=== PATIENT | male | born 1975 | race Caucasian/White ===

== ENCOUNTER 2022-07-08 16:54 | Observation (INO) ==
[2022-07-08 17:17] LABS: Basophils % 0.6 % (0.0-0.8); Eosinophils # 0.1 10*3/uL (0.0-0.87); Eosinophils % 1.2 % (0.00-10.9); Hematocrit 52.4 VOL% (42.0-52.0); Hemoglobin 17.7 GM/DL (14.0-18.0); Immature Granulocytes % 0.4 %; Immature Granulocytes Absolute 0.03 #; Lymphocytes # 1.5 10*3/uL (1.4-4.0); Lymphocytes % 21.4 % (21.2-54.2); Mean Corpuscular HGB Conc 33.8 GM/DL (32-36); Mean Corpuscular Volume 93.4 FL (87-102); Mean Platelet Volume 9.5 FL (9.6-12.0); Monocytes # 0.7 10*3/uL (0.11-0.8); Monocytes % 10.2 % (1.7-12.7); Neutrophils % 66.2 % (38.7-73.9); Platelet Count 197 T/CUMM (130-400); Red Blood Count 5.61 MC/CUMM (3.8-5.5); White Blood Count 6.9 T/CUMM (4-12)
[2022-07-08 17:38] LABS: Albumin 4.1 G/DL (3.4-5.0); Bilirubin,Total 1.4 MG/DL (0.20-1.00); Calcium 9.7 MG/DL (8.5-10.1); Osmolality,Calculated 285.1 MOS/KG (273-304); Potassium 4.1 MMOL/L (3.5-5.1); Total Protein 7.4 G/DL (6.4-8.2)
[2022-07-08] MEDS ORDERED: ENOXAPARIN 100 MG/ML SYRINGE SUBCUT STA (18:21)
[2022-07-08] MEDS ORDERED: ENOXAPARIN 120 MG/0.8 ML SYRINGE SUBCUT STA (18:22)
[2022-07-08] MEDS ORDERED: ASPIRIN 325 MG TABLET PO STA (18:24)
[2022-07-08] MEDS ORDERED: MORPHINE 2 MG/1 ML SYRINGE IV STA (18:24)
[2022-07-08] MEDS ORDERED: ONDANSETRON 4 MG/2 ML VIAL IV STA (18:24)
[2022-07-08] MEDS ORDERED: NITROGLYCERIN 2% OINT 1 INCH/GM PACK TOP STA (18:24)
[2022-07-08] MEDS ORDERED: POTASSIUM CHLORIDE RIDER 10 MEQ/100 ML PREMIX IV PRN (18:25)
[2022-07-08] MEDS ORDERED: MAGNESIUM SULF RIDER 2 GM/50 ML PREMIX IV PRN ×2 (18:25→18:27)
[2022-07-08] MEDS ORDERED: DIAZEPAM 5 MG TABLET PO ONE (18:25)
[2022-07-08] MEDS ORDERED: diphenhydrAMINE CAP 25 MG CAPSULE PO ONE (18:25)
[2022-07-08] MEDS ORDERED: ZALEPLON 5 MG CAPSULE PO PRN (18:27)
[2022-07-08] MEDS ORDERED: MAGNESIUM SULF RIDER 4 GM/100 ML PREMIX IV PRN (18:27)
[2022-07-08] MEDS ORDERED: ACETAMINOPHEN 325 MG TABLET PO PRN (18:27)
[2022-07-08] MEDS ORDERED: ONDANSETRON 4 MG/2 ML VIAL IV PRN (18:27)
[2022-07-08] MEDS ORDERED: DOCUSATE SODIUM 100 MG CAPSULE PO PRN (18:27)
[2022-07-08] MEDS ORDERED: MORPHINE 2 MG/1 ML SYRINGE IV PRN (18:27)
[2022-07-08] MEDS ORDERED: ALUMINUM/MAGNES/SIMETH MAX STR 30 ML UDCUP PO PRN (18:27)
[2022-07-08] MEDS ORDERED: hydrALAZINE 20 MG/1 ML VIAL IV PRN (18:27)
[2022-07-08] MEDS ORDERED: SIMETHICONE CHEW 125 MG TABLET PO PRN (18:27)
[2022-07-08] MEDS ORDERED: NITROGLYCERIN SL 0.4 MG TABLET SL PRN (18:30)
[2022-07-08] MEDS: SODIUM CHLORIDE 0.9% 1,000 ML IV SCH (19:00)
[2022-07-09] MEDS: NITROGLYCERIN 2% OINT 1 INCH/GM PACK TOP SCH ×2 (00:27→06:03)
[2022-07-09 04:20] LABS: Basophils % 0.4 % (0.0-0.8); Eosinophils # 0.1 10*3/uL (0.0-0.87); Eosinophils % 1.6 % (0.00-10.9); Hemoglobin 16.5 GM/DL (14.0-18.0); Immature Granulocytes % 0.1 %; Immature Granulocytes Absolute 0.01 #; Lymphocytes # 1.6 10*3/uL (1.4-4.0); Lymphocytes % 23.1 % (21.2-54.2); Mean Corpuscular HGB Conc 33.7 GM/DL (32-36); Mean Corpuscular Volume 95.1 FL (87-102); Mean Platelet Volume 9.7 FL (9.6-12.0); Monocytes # 0.8 10*3/uL (0.11-0.8); Monocytes % 10.9 % (1.7-12.7); Neutrophils % 63.9 % (38.7-73.9); Platelet Count 186 T/CUMM (130-400); Red Blood Count 5.15 MC/CUMM (3.8-5.5); Red Cell Distribution Width 13.1 % (9.3-17.3)
[2022-07-09 04:55] LABS: Calcium 8.8 MG/DL (8.5-10.1); Osmolality,Calculated 287.1 MOS/KG (273-304); Potassium 3.9 MMOL/L (3.5-5.1); Risk Ratio 5.11
[2022-07-09 05:26] VITALS: BP 125/74
[2022-07-09] MEDS: SODIUM CHLORIDE 0.9% 1,000 ML IV SCH (06:02)
[2022-07-09] MEDS ORDERED: HEPARIN/NACL 0.9% 2 UNITS/ML 2,000 UNIT/1,000 ML BAG IV ONE (06:48)
[2022-07-09] MEDS ORDERED: MIDAZOLAM 2 MG/2 ML VIAL ONE ×4 (07:56→08:52)
[2022-07-09] MEDS ORDERED: fentaNYL 100 MCG/2 ML VIAL ONE ×2 (07:56→08:20)
[2022-07-09] MEDS ORDERED: VERAPAMIL 5 MG/2 ML VIAL ONE (08:03)
[2022-07-09] MEDS ORDERED: NITROGLYCERIN DRIP 50 MG/250 ML BOTTLE IV ONE (08:03)
[2022-07-09] MEDS ORDERED: HEPARIN 5,000 UNIT/1 ML VIAL ONE (08:33)
[2022-07-09] MEDS ORDERED: PANTOPRAZOLE 40 MG TABLET PO SCH (09:00)
[2022-07-09] MEDS ORDERED: VALSARTAN 80 MG TABLET PO SCH ×2 (09:00→10:00)
[2022-07-09] MEDS ORDERED: ASPIRIN EC 325 MG TABLET PO SCH (09:00)
[2022-07-09] MEDS ORDERED: NEBIVOLOL 5 MG TABLET PO SCH (09:00)
[2022-07-09] MEDS ORDERED: ASPIRIN 325 MG TABLET ONE (09:43)
[2022-07-09] MEDS ORDERED: ATORVASTATIN 40 MG TABLET PO SCH (21:00)
[2022-07-09] MEDS ORDERED: ATORVASTATIN 10 MG TABLET PO SCH (21:00)
[2022-07-10] MEDS ORDERED: amLODIPine 5 MG TABLET PO SCH (09:00)
== END 2022-07-09 13:42 | disposition home or self-care (01) ==
LOC: N.ED 16:54 → N.EDINP 16:54
PROVIDERS: ADMIT Internal Medicine Cardiovascular Disease; ATTEND Internal Medicine Cardiovascular Disease
PROC: CLCCHCL (ICD-10-PCS; 2022-07-09 08:15)